=== PATIENT | female | born 1950 | race Caucasian/White ===

== ENCOUNTER 2021-01-01 22:07 | Inpatient (IN) | payer MEDICARE, OTHER ==
[~2021-01-01] VITALS: Ht 132.1 cm; Wt 48.1 kg
[~2021-01-01 22:07] MED LIST: ATENOLOL
[2021-01-01 22:40] LABS: CLARITY URINE CLEAR (CLEAR); COLOR URINE YELLOW (YELLOW); KETONES URINE NEGATIVE (NEGATIVE); LEUKOCYTE ESTERASE URINE TRACE (NEGATIVE); NITRITE URINE NEGATIVE (NEGATIVE); OCCULT BLOOD URINE NEGATIVE (NEGATIVE); PH URINE 5.5 (4.5-8.0); PROTEIN URINE TRACE (NEGATIVE); SPECIFIC GRAVITY URINE 1.014 (1.005-1.030); UROBILINOGEN URINE 0.2 E.U./dL (0.2-1.0)
[2021-01-01 23:22] LABS: BASOPHILS % 0.5 % (0.0-2.0); EOSINOPHILS % 2.5 % (0.0-5.0); HEMATOCRIT. 33.3 % (36.0-48.0); HEMOGLOBIN. 11.2 g/dL (12.0-16.0); MEAN CORPUSCULAR HEMOGLOBIN 28.8 pg (28.0-32.0); MEAN CORPUSCULAR VOLUME 85.2 fL (81.0-99.0); MEAN PLATELET VOLUME 8.2 fl (7.4-10.4); MONOCYTES % 7.6 % (2.0-8.0); NEUTROPHILS % 56.4 % (40.0-76.0); PLATELET 364 x1000/uL (130-400); RED BLOOD CELL COUNT 3.91 mill/uL (4.2-5.4); RED CELL DISTRIBUTION WIDTH 13.6 % (11.6-14.6)
[2021-01-01 23:27] LABS: CHLORIDE 103 mEq/L (98-107)
[2021-01-01 23:31] LABS: PROTHROMBIN TIME 10.5 sec (9.6-11.0)
[2021-01-02] MEDS ORDERED: IOHEXOL-300 100 ML BOTTLE ONE (00:19)
[2021-01-02] MEDS ORDERED: SODIUM CHLORIDE 0.9% 500 ML IV ONE (01:15)
[2021-01-02] MEDS: MORPHINE SULFATE 4 MG/ML CPJ (NOT FOR IM USE) IV SCH ×2 (01:38→07:05)
[2021-01-02] MEDS: MORPHINE SULFATE 2 MG/ML CPJ (NOT FOR IM USE) IV PRN (07:05)
[2021-01-02] MEDS ORDERED: ACETAMINOPHEN 325MG TABLET PO PRN (09:00)
[2021-01-02] MEDS: ACETAMINOPHEN WITH CODEINE 300/30MG TABLET PO PRN ×3 (09:43→20:22)
[2021-01-02] MEDS: ONDANSETRON HCL 4MG/2ML INJ IV PRN (10:42)
[2021-01-02] MEDS ORDERED: MAGNESIUM/ALUMINUM HYDROXIDE/SIMETHICONE 30ML UDC PO PRN (16:15)
[2021-01-02] MEDS ORDERED: SODIUM CHLORIDE 0.9% 500 ML IV NR (17:30)
[2021-01-03] VITALS: BP 117/50
[2021-01-03] MEDS: MORPHINE SULFATE 2 MG/ML CPJ (NOT FOR IM USE) IV PRN ×2 (02:26→10:34)
[2021-01-03] MEDS: ONDANSETRON HCL 4MG/2ML INJ IV PRN (02:26)
[2021-01-03 02:56] VITALS: BP 117/50
[2021-01-03 04:00] VITALS: BP 121/59
[2021-01-03] MEDS ORDERED: AMLO5TAB88 MT (05:03)
[2021-01-03] MEDS ORDERED: LOSA1TAB40 MT (05:03)
[2021-01-03] MEDS ORDERED: ESCI-7 PO (05:29)
[2021-01-03] MEDS ORDERED: CHOL100046 (05:29)
[2021-01-03] MEDS ORDERED: CALC-26 MT (05:29)
[2021-01-03] MEDS ORDERED: SIMV-43 PO (05:29)
[2021-01-03] MEDS ORDERED: TRAM50TA3 MT (05:29)
[2021-01-03] MEDS ORDERED: ASPI-1497 MT ×2 (05:29)
[2021-01-03] MEDS ORDERED: ALEN70TA79 MT (05:30)
[2021-01-03] MEDS ORDERED: *PATIENT'S OWN MEDICATION STORAGE XX SCH (07:00)
[2021-01-03] MEDS ORDERED: PANTOPRAZOLE 40MG DR TABLET PO SCH (07:20)
[2021-01-03 08:00] VITALS: BP 111/35
[2021-01-03 08:54] LABS: FOLIC ACID (FOLATE) SERUM 17.4 ng/mL (>5.38)
[2021-01-03 09:00] LABS: TOTAL IRON BINDING CAPACITY 237 ug/dL (250-450)
[2021-01-03] MEDS ORDERED: DOCUSATE SODIUM 100MG CAPSULE PO SCH (09:00)
[2021-01-03 13:55] VITALS: BP 119/49
[2021-01-03 14:10] VITALS: BP 119/49
[2021-01-03] MEDS: ACETAMINOPHEN WITH CODEINE 300/30MG TABLET PO PRN (14:10)
[2021-01-04 04:07] LABS: CANCER ANTIGEN 125 23.3 U/mL (0.0-38.1)
== END 2021-01-03 17:30 | disposition home or self-care (01) | DRG 842 ==
LOC: ER 22:07 → ENRESERV 01-02 21:59 → 6EST 01-02 22:46
PROVIDERS: ADMIT Internal Medicine; ATTEND Internal Medicine
DX: C85.90 Non-Hodgkin lymphoma, unspecified, unspecified site (principal); R59.0 Localized enlarged lymph nodes; D25.9 Leiomyoma of uterus, unspecified; D64.9 Anemia, unspecified; E78.00 Pure hypercholesterolemia, unspecified; E78.5 Hyperlipidemia, unspecified; R91.8 Other nonspecific abnormal finding of lung field; I10 Essential (primary) hypertension; N81.10 Cystocele, unspecified; Z20.822 Contact with and (suspected) exposure to COVID-19; M81.0 Age-related osteoporosis without current pathological fracture; Z90.49 Acquired absence of other specified parts of digestive tract; Z79.82 Long term (current) use of aspirin; Z79.899 Other long term (current) drug therapy; Z87.440 Personal history of urinary (tract) infections; N88.9 Noninflammatory disorder of cervix uteri, unspecified
CPT/HCPCS: 36415; 74177; 76700; 80053; 81003; 82378; 82728; 82746; 83540; 83550; 83605; 83615; 85025; 86301; 86304; 87426; 93005; 99285; J2270; J2405; Q9967